=== PATIENT | male | born 1965 | race Caucasian/White ===

== ENCOUNTER 2024-08-30 17:01 | Emergency (ER) | payer OTHER, BC ==
[~2024-08-30] VITALS: Ht 167.6 cm; Wt 90.7 kg
[~2024-08-30 17:01] MED LIST: Cleocin HCl300 MG PO; MORP60ER PO; Naprosyn500 MG PO; Percocet 5-3251 EACH PO; SOMA250 MG PO
[2024-08-30 17:11] VITALS: BP 145/105
[2024-08-30] MEDS ORDERED: DOXY100 PO (17:20)
== END 2024-08-30 17:21 | disposition home or self-care (01) ==
LOC: ER 17:01
DX: S10.96XA Insect bite of unspecified part of neck, initial encounter (principal); Z79.899 Other long term (current) drug therapy; Z79.891 Long term (current) use of opiate analgesic; W57.XXXA Bitten or stung by nonvenomous insect and other nonvenomous arthropods, initial encounter
CPT/HCPCS: 99281